=== PATIENT | male | born 1970 | race Caucasian/White ===

== ENCOUNTER 2018-08-14 15:09 | Outpatient (REF) | payer MEDICAID, SELFPAY ==
[2018-08-14 19:51] LABS: Abs Immature Grans 0.04 k/cumm (0.0-0.09); Absolute Basophil Count 0.02 k/cumm (0.0-0.2); Absolute Eosinophil Count 0.18 k/cumm (0.0-0.7); Absolute Lymphocyte Count 1.65 k/cumm (1.2-3.4); Absolute Monocyte Count 0.47 k/cumm (0.11-0.7); Absolute Neutrophil Count 4.41 k/cumm (1.2-6.7); Basophils % 0.3; Eosinophils % 2.7; HCT 47.1 % (40.0-50.0); HGB 15.6 g/dL (13.5-17.5); Immature Grans % 0.6; Lymphocytes % 24.4; Mean Corp. HGB Concentration 33.1 g/dL (32.0-36.0); Mean Corpuscular Volume 87.5 fL (80-95); Mean Platelet Volume 10.1 fL (8.0-11.0); Monocytes % 6.9; Neutrophils % 65.1; Platelet Count 230 x1000/uL (130-400); RBC 5.38 m/cumm (4.50-6.00); White Blood Cell Count 6.77 k/cumm (4.4-10.8)
[2018-08-14 20:11] LABS: ALT 39 U/L (12-78); AST 25 U/L (15-37); Alkaline Phosphatase 82 U/L (46-116); Anion Gap 10.6 mmol/L (3-11); BUN 11 mg/dL (7-18); Bilirubin, Total 1.1 mg/dL (0.2-1.0); CO2 26.4 mmol/L (21.0-32.0); CREATININE 0.98 mg/dL (0.70-1.30); Calcium 9.2 mg/dL (8.5-10.1); Chloride 105 mmol/L (98-107); Cholesterol 234 mg/dL (50-200); Glucose 83 mg/dL (70-100); HDL Cholesterol 40 mg/dL (40-60); LDL CHOLESTEROL 166 mg/dL (<100); Potassium 4.2 mmol/L (3.5-5.1); Sodium 142 mmol/L (136-145); Total Protein 7.2 g/dL (6.4-8.2); Triglyceride 158 mg/dL (30-150)
== END 2018-08-14 15:29 ==
LOC: NCHCN 15:09
PROVIDERS: PCP Family Medicine; Visit Provider Family Medicine
DX: R10.11 Right upper quadrant pain (principal); F33.2 Major depressive disorder, recurrent severe without psychotic features; E78.5 Hyperlipidemia, unspecified
CPT/HCPCS: 80053; 80061; 83721; 85025

== ENCOUNTER 2018-11-08 01:43 | Outpatient (CLI) | payer MEDICAID, SELFPAY ==
--- NOTE | 2018-11-08 08:09 | DI.US_ITS ---
SYMPTOM/DIAGNOSIS: RUQ ABD PAIN, R10.11 ABDOMEN ULTRASOUND: Routine examination was performed. There is limited visualization of the abdominal aorta and inferior vena cava. No definite abdominal aortic aneurysm is seen. The liver is enlarged measuring 20.1 cm. There is diffuse increased echogenicity of the liver. No hepatic mass is seen. There is a mobile stone seen within the gallbladder. No gallbladder wall thickening, sludge or pericholecystic fluid is seen. The common duct is within normal limits at .5 cm. There was a negative sonographic Manuel's sign. The pancreas is unremarkable. The spleen is mildly enlarged measuring 13.8 cm. The kidneys are unremarkable. No free fluid is seen in the upper abdomen. IMPRESSION: Hepatic steatosis. Hepatosplenomegaly. Cholelithiasis. No sonographic findings to suggest acute cholecystitis.
== END 2018-11-08 02:03 ==
PROVIDERS: PCP Family Medicine; Visit Provider Family Medicine
DX: R10.11 Right upper quadrant pain (principal); K76.0 Fatty (change of) liver, not elsewhere classified; R16.2 Hepatomegaly with splenomegaly, not elsewhere classified; K80.20 Calculus of gallbladder without cholecystitis without obstruction
CPT/HCPCS: 76700

== ENCOUNTER 2018-11-12 13:41 | Outpatient (REF) | payer MEDICAID, SELFPAY ==
[2018-11-12 19:37] LABS: ALT 45 U/L (12-78); AST 24 U/L (15-37); Alkaline Phosphatase 87 U/L (46-116); Anion Gap 11.1 mmol/L (3-11); BUN 12 mg/dL (7-18); CO2 26.9 mmol/L (21.0-32.0); Calcium 8.7 mg/dL (8.5-10.1); Chloride 104 mmol/L (98-107); Glucose 75 mg/dL (70-100); Lipase 184 U/L (73-393); Potassium 4.1 mmol/L (3.5-5.1); Sodium 142 mmol/L (136-145); Total Protein 7.1 g/dL (6.4-8.2)
[2018-11-12 19:41] LABS: Abs Immature Grans 0.04 k/cumm (0.0-0.09); Absolute Basophil Count 0.03 k/cumm (0.0-0.2); Absolute Eosinophil Count 0.17 k/cumm (0.0-0.7); Absolute Lymphocyte Count 1.54 k/cumm (1.2-3.4); Absolute Monocyte Count 0.38 k/cumm (0.11-0.7); Absolute Neutrophil Count 3.37 k/cumm (1.2-6.7); Basophils % 0.5; Eosinophils % 3.1; HGB 15.2 g/dL (13.5-17.5); Immature Grans % 0.7; Lymphocytes % 27.8; Mean Corpuscular Hemoglobin 28.9 pg (27.0-33.0); Mean Corpuscular Volume 87.5 fL (80-95); Mean Platelet Volume 10.7 fL (8.0-11.0); Monocytes % 6.9; Platelet Count 207 x1000/uL (130-400); RBC 5.26 m/cumm (4.50-6.00); RBC Distribution Width 14.9 % (11.8-14.1); White Blood Cell Count 5.53 k/cumm (4.4-10.8)
== END 2018-11-12 14:01 ==
LOC: NCHCN 13:41
PROVIDERS: PCP Family Medicine; Visit Provider Family Medicine
DX: R10.11 Right upper quadrant pain (principal)
CPT/HCPCS: 80053; 83690; 85025

== ENCOUNTER 2018-11-15 02:35 | Outpatient (CLI) | payer MEDICAID, SELFPAY ==
--- NOTE | 2018-11-15 13:00 | DI.NM_ITS ---
SYMPTOMS/DIAGNOSIS: RIGHT UPPER QUADRANT ABDOMINAL PAIN, RADIATING TO BACK X 1 YEAR WITH INCREASING INTENSITY, POSITIVE STONE BY ULTRASOUND, R10.11 HEPATOBILIARY SCAN: Hepatobiliary scan was performed with intravenous infusion of 5.0 mCi of technetium 99 labelled Mebrofenin. There is prompt homogeneous hepatic uptake and prompt uptake in the gallbladder, bile ducts and small intestine. CONCLUSION: Normal hepatobiliary scan. No evidence of cholecystitis.
== END 2018-11-15 02:55 ==
PROVIDERS: PCP Family Medicine; Visit Provider Family Medicine
DX: R10.11 Right upper quadrant pain (principal)
CPT/HCPCS: 78227

== ENCOUNTER 2019-12-17 11:08 | Outpatient (REF) | payer MEDICAID, SELFPAY ==
[2019-12-17 15:17] LABS: HCT 41.8 % (40.0-50.0); Mean Corp. HGB Concentration 33.5 g/dL (32.0-36.0); Mean Corpuscular Hemoglobin 29.5 pg (27.0-33.0); Mean Corpuscular Volume 88.2 fL (80-95); Mean Platelet Volume 10.4 fL (8.0-11.0); Platelet Count 203 x1000/uL (130-400); RBC 4.74 m/cumm (4.50-6.00); RBC Distribution Width 14.5 % (11.8-14.1); White Blood Cell Count 5.03 k/cumm (4.4-10.8)
[2019-12-17 15:55] LABS: ALT 41 U/L (16-63); AST 22 U/L (15-37); Albumin 3.9 g/dL (3.4-5.0); Alkaline Phosphatase 76 U/L (46-116); Anion Gap 7.5 mmol/L (3-11); BUN 18 mg/dL (7-18); Bilirubin, Total 0.8 mg/dL (0.2-1.0); CO2 28.5 mmol/L (21.0-32.0); CREATININE 1.05 mg/dL (0.70-1.30); Calcium 8.5 mg/dL (8.5-10.1); Chloride 105 mmol/L (98-107); Ferritin 173 ng/mL (26-388); Glucose 105 mg/dL (74-106); Potassium 4.2 mmol/L (3.5-5.1); Sodium 141 mmol/L (136-145); Total Protein 6.9 g/dL (6.4-8.2)
[2019-12-17 16:23] LABS: C-Reactive Protein 0.33 mg/dL (0.0-0.3)
[2019-12-18 09:53] LABS: Hepatitis B Surface Ag Negative (Negative)
[2019-12-18 10:54] LABS: Hepatitis C Ab w Rflx HCV PCR Negative (Negative)
== END 2019-12-17 11:28 ==
LOC: NCHCN 11:08
PROVIDERS: PCP Family Medicine; Visit Provider Family Medicine
DX: M79.671 Pain in right foot (principal); K76.0 Fatty (change of) liver, not elsewhere classified; Z11.59 Encounter for screening for other viral diseases
CPT/HCPCS: 80053; 85027; 86803; 87340; 82728; 86140

== ENCOUNTER 2020-01-29 17:36 | Emergency (ER) | payer MEDICAID, SELFPAY ==
[2020-01-29] VITALS (12 sets, daily range): BP systolic 110–145; BP diastolic 61–91; PULSE 57–66; RESP 8–18; TEMP 36.7; O2SAT 95–98
--- NOTE | 2020-01-29 18:04 | W.ED.GENAD ---
Discharge Plan Disposition Patient Disposition: HOME Condition: Good Discharge Details Chief Complaint: Abd Prob Clinical Impression: Nausea, Light-headedness, Elevated lipase Primary Care Provider: Shekhar Daigle ED Provider: Octavio Wells Home Meds and New Rx's Prescriptions: New ondansetron 4 mg tablet,disintegrating 4 mg PO Q8H PRNQty: 10 RF: 0 Continued paroxetine HCl [Paxil] 20 MG tablet 20 mg PO DAILY RF: 0 cetirizine [Zyrtec] 10 MG tablet,chewable 10 mg PO DAILY RF: 0 bupropion HCl 150 mg tablet sustained-release 12 hr 150 mg PO DAILY RF: 0 ibuprofen [Ibuprofen IB] 200 mg Tablet 400 mg PO Q6H PRNRF: 0 Discharge Instructions Additional Instructions: Everything looked fine here except for slightly elevated lipase. However CAT scan did not suggest pancreatitis. No evidence of gallbladder disease. Would recommend liquid/bland diet for the next day or 2 to see how you do. Ondansetron as needed for nausea. Contact primary care to touch base with him in the next day or 2. Return to ED if you develop fever, vomiting, abdominal pain, chest pain, shortness of breath, neurologic changes, fainting. 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 He states he believes he has had trouble with his gallbladder in the past but has not had a formal diagnosis. He arrives with temperature 36.7, pulse 62, pressure 135/85. He feels better than he did at home. He does have mild diffuse tenderness of the abdomen without focal quality. There is no rebound or guarding present. Different diagnosis includes biliary colic, ileus, partial bowel obstruction and would consider diverticulitis. Patient IV access established, fluids initiated, referred for laboratory testing and CT images. Initial laboratories show reassuring CBC, LFTs that are reassuring but note of lipase 586. Patient continues to prep for CT scan. We will sign out to Dr. Wells pending review of his imaging and reevaluation. Lab Data Lab results reviewed: Yes I reviewed the patient's lab results. Labs: Laboratory Results - last 24 hr 01/29/20 01/29/20 18:17 18:17 WBC 5.48 RBC 4.80 Hgb 13.9 Hct 42.0 MCV 87.5 MCH 29.0 MCHC 33.1 RDW 14.1 Plt Count 216 MPV 10.1 Immature Gran % 0.2 Neutrophils % 60.6 Lymphocytes % 27.6 Monocytes % 7.8 Eosinophils % 3.6 Basophils % 0.2 Absolute Neutrophils 3.32 Absolute Lymphocytes 1.51 Absolute Monocytes 0.43 Absolute Eosinophils 0.20 Absolute Basophils 0.01 Sodium 139 Potassium 3.9 Chloride 103 Carbon Dioxide 26.6 Anion Gap 9.4 BUN 10 Creatinine 1.05 Estimated GFR/1.73 m2 >= 60.00 Glucose 143 H Calcium 9.0 Magnesium 2.1 Total Bilirubin 0.6 AST 27 ALT 46 Alkaline Phosphatase 85 Troponin I < 0.05 Total Protein 6.9 Albumin 3.6 Lipase 586 H ECG Data Attestation: I personally reviewed and interpreted this ECG (s) as follows: Interpretation: Normal sinus rhythm with a rate of 62, QRS is narrow, no ST segment elevation present. <Octavio Wells MD - Last Filed: 01/29/20 21:30> Patient signed out to me pending CT of the abdomen pelvis. He had presented with nausea, bloating, lightheadedness. Please see Dr. Catherine's original note for details and plan. Laboratory studies unremarkable except for lipase being slightly elevated. Received fluids but was not feeling nauseated initially. Denies having any type of chest pain or pressure. He has no spinning sensation just a lightheaded feeling with nausea. He has no abdominal pain. He has not had vomiting. His CT scan is unremarkable. He has a fatty liver otherwise no acute changes. Will give another liter of LR as well as some Zofran IV and reevaluate. 21:25 - Patient is feeling better after the second liter of fluid and some Zofran. Now is just exhausted because he is not slept much today and at manufacturing shift supervisor last night. We will keep him on a full liquid/bland diet for a day or 2 and have him touch base with his primary care. Home with some Zofran to use as needed. Return to ED for fever, vomiting, abdominal pain, chest pain, shortness of breath, fainting, other concerns or problems. Lab Data Lab results reviewed: Yes I reviewed the patient's lab results. HPI <Estrada Catherine MD - Last Filed: 01/29/20 19:23> General Mode of arrival: ambulatory. Date/Time Provider Initiated Documentation: 01/29/20 17:44. Limitations to Documentation: no limitations. Information obtained by: patient. History of Present Illness 49 year old M presents to the emergency department with the chief complaint of Abdominal pain and bloating with lightheadedness, described as moderate and similar to prior episodes, Quality is described as dull, and is localized to the abdomen. Patient started experiencing this hour(s) and it has been other (Improving). No relieving factors improve symptom(s), No exacerbating factors reported . Patient notes loss of appetite; denies fever/chills and nausea/vomiting. Patient did receive the following treatments prior to arrival, none Related Data Home Medications Medication Instructions Recorded Confirmed cetirizine [Zyrtec] 10 mg PO DAILY tab-cap 01/13/13 01/29/20 paroxetine HCl [Paxil] 20 mg PO DAILY tab-cap 01/13/13 01/29/20 bupropion HCl 150 mg PO DAILY 01/29/20 01/29/20 ibuprofen [Ibuprofen IB] 400 mg PO Q6H PRN 01/29/20 01/29/20 ondansetron 4 mg PO Q8H PRN #10 tab 01/29/20 Previous Rx's Medication Instructions Recorded ondansetron 4 mg PO Q8H PRN #10 tab 01/29/20 Allergies Allergy/AdvReac Type Severity Reaction Status Date / Time hydrocodone bitartrate Allergy Intermediate SEVERE Unverified 01/29/20 17:49 [From Vicodin] ITCHING oxycodone HCl [From Percocet] Allergy Intermediate SEVERE Unverified 01/29/20 17:49 ITCHING General Stated Complaint: Abd Prob CASSANDRA: 3 Review of Systems <Estrada Catherine MD - Last Filed: 01/29/20 19:23> Narrative: 7 systems reviewed and otherwise negative PFSH <Estrada Catherine MD - Last Filed: 01/29/20 19:23> Social History Smoking/Tobacco Use Status: Never Drug use: Occasionally Substance use type: marijuana Do you feel safe at home: Yes Do you feel safe in your relationship?: Yes Exam <Estrada Catherine MD - Last Filed: 01/29/20 19:23> Narrative Exam Narrative: GEN: awake, alert, oriented 3. Pleasant, well groomed, interactive. HEAD: Normocephalic, atraumatic ENT: Mucous membranes moist, oropharynx unremarkable, External ear exam unremarkable EYES: PERRL, EOMI NECK: Full ROM, no TEGAN, no menigismus CHEST/RESP: Nontender, clear to auscultation bilateral, no wheeze/rhonchi/rales CARDIOVASCULAR: RRR, no murmur, rub rosamaria. 2+ Rad pulse bilateral ABDOMEN: Soft, mild tenderness without rebound or guarding, nonfocal, no mass. +Bowel sounds EXT: Full ROM, no edema, no rash Neuro: Grossly normal neurologic exam, conversant, interactive. Psych: Speech fluent, thoughts congruent, affect normal Course <Estrada Catherine MD - Last Filed: 01/29/20 19:23> Vital Signs Vital signs: Vital Signs Temperature 36.7 C 01/29/20 17:43 Pulse 62 01/29/20 17:43 Respiratory Rate 18 01/29/20 17:43 Blood Pressure 135/84 01/29/20 17:43 Pulse Oximetry 98 01/29/20 17:43 Temperature 36.7 C 01/29/20 17:43 Temperature Source Temporal Artery Scan 01/29/20 17:43 Pulse 62 01/29/20 17:43 Respiratory Rate 18 01/29/20 17:43 Respiratory Effort Non-Labored 01/29/20 17:48 Blood Pressure 135/84 01/29/20 17:43 Blood Pressure Position Supine 01/29/20 17:43 Pulse Oximetry 98 01/29/20 17:43 Oxygen Delivery Method Room Air 01/29/20 17:43 Oxygen Flow Rate 0 01/29/20 17:43 Pain Level 5 01/29/20 17:43 Sign Out <Estrada Catherine MD - Last Filed: 01/29/20 19:23> Sign Out Data: Sign Out Comment: Followup CT images Last updated by Estrada Catherine MD at 01/29/20 19:45
--- NOTE | 2020-01-29 18:15 | DI.CT_ITS ---
EXAM: CT ABDOMEN PELVIS W CLINICAL HISTORY: Epigastric pain with bloating. TECHNIQUE: Imaging Protocol: Axial computed tomography images with coronal and sagittal reformatted images were created and reviewed CONTRAST MATERIAL: Intravenous: Omnipaque 350 Contrast volume:100 cc Oral: yes / COMPARISON: US US ABDOMEN from 11/08/2018 FINDINGS: ABDOMEN: Lung Bases: Normal where visualized. Liver: Moderate fatty infiltration. No measurable mass. Gallbladder and biliary tract: No radiodense calculus or dilation. Pancreas: Normal density, no abnormal calcifications or inflammatory process. Spleen: Normal. Kidneys: Normal size, contour and axis. No radiodense stones or obstructive uropathy. No masses seen. Adrenal glands: No masses seen. Abdominal Aorta: Abdominal portion non-dilated. PELVIS: Bladder: Symmetric distention, no gross wall thickening. Bowel: No obstruction or bowel wall thickening. No evidence of appendicitis. No diverticulosis is vi sible. Peritoneal cavity: No ascites, collection or mesenteric inflammatory response. Bones: L5 spondylolysis and mild L5-S1 spondylolisthesis. Degenerative disc changes are seen through out. Reproductive organs: Within normal limits. Lymph nodes: Unremarkable. Impression: Hepatic steatosis, otherwise unremarkable CT scan of the abdomen and pelvis. RADIATION DOSE DELIVERED: 1,603.74mGy.cm Total DLP DATA REPOSITORY: All CT scans at this facility are submitted to the National Radiology Data Registry (NRDR) Dose Index Registry (DIR) with the [employer] (ACR). RADIATION OPTIMIZATION: All CT scans at this facility use at least one of these dose optimization te chniques: automated exposure control; mA and/or kV adjustment per patient size (includes targeted exa ms where dose is matched to clinical indication); or iterative reconstruction.
[2020-01-29] MEDS: Lactated Ringers 1,000 ML 125 ML IV (18:20)
[2020-01-29 18:26] LABS: Abs Immature Grans 0.01 k/cumm (0.0-0.09); Absolute Basophil Count 0.01 k/cumm (0.0-0.2); Absolute Lymphocyte Count 1.51 k/cumm (1.2-3.4); Absolute Monocyte Count 0.43 k/cumm (0.11-0.7); Absolute Neutrophil Count 3.32 k/cumm (1.2-6.7); Basophils % 0.2; Eosinophils % 3.6; HGB 13.9 g/dL (13.5-17.5); Immature Grans % 0.2 %; Lymphocytes % 27.6; Mean Corp. HGB Concentration 33.1 g/dL (32.0-36.0); Mean Corpuscular Volume 87.5 fL (80-95); Mean Platelet Volume 10.1 fL (8.0-11.0); Monocytes % 7.8; Neutrophils % 60.6; Platelet Count 216 x1000/uL (130-400); RBC Distribution Width 14.1 % (11.8-14.1); White Blood Cell Count 5.48 k/cumm (4.4-10.8)
[2020-01-29 18:38] LABS: ALT 46 U/L (16-63); AST 27 U/L (15-37); Albumin 3.6 g/dL (3.4-5.0); Alkaline Phosphatase 85 U/L (46-116); Anion Gap 9.4 mmol/L (3-11); BUN 10 mg/dL (7-18); Bilirubin, Total 0.6 mg/dL (0.2-1.0); CO2 26.6 mmol/L (21.0-32.0); CREATININE 1.05 mg/dL (0.70-1.30); Chloride 103 mmol/L (98-107); Glucose 143 mg/dL (74-106); Lipase 586 U/L (73-393); Magnesium 2.1 mg/dL (1.8-2.4); Potassium 3.9 mmol/L (3.5-5.1); Sodium 139 mmol/L (136-145); Total Protein 6.9 g/dL (6.4-8.2); Troponin I < 0.05 ng/mL (<0.06)
[2020-01-29] MEDS: Omnipaque 350 MG/ML 100 ML BTL IV (20:02)
[2020-01-29] MEDS: Normal Saline - Diluent 50 ML VIAL IV (20:03)
--- NOTE | 2020-01-29 20:11 | DI.VRAD_ITS ---
PROCEDURE INFORMATION: Exam: CT Abdomen And Pelvis With Contrast Exam date and time: 01/29/2020 19:47 Age: 49 years old Clinical indication: Abdominal tenderness and bloating and other: Epigastric pain with bloating TECHNIQUE: Imaging protocol: Computed tomography of the abdomen and pelvis with intravenous contrast. Radiation optimization: All CT scans at this facility use at least one of these dose optimization techniques: automated exposure control; mA and/or kV adjustment per patient size (includes targeted exams where dose is matched to clinical indication); or iterative reconstruction. Contrast material: OMNIPAQUE 350; Contrast volume: 100 ml; Contrast route: INTRAVENOUS (IV); Other contrast: Oral, 50 ml omnipaque , 1000 ml; COMPARISON: MO US ABDOMEN 11/08/2018 09:39 FINDINGS: Liver: Fatty liver with no mass lesions. Gallbladder and bile ducts: Normal morphology of the gallbladder. No pericholecystic edema. No significant biliary dilation or radiopaque stones in the biliary tree. Pancreas: No ductal dilation. No masses. Spleen: The spleen is mildly prominent in size with no focal lesions. Adrenals: No mass. Kidneys and ureters: No hydronephrosis. No renal masses. Stomach and bowel: No obstruction. No mucosal thickening. Appendix: No evidence of appendicitis. Intraperitoneal space: No free air. No significant fluid collection. Vasculature: No abdominal aortic aneurysm. Lymph nodes: No significantly enlarged lymph nodes. Bladder: Unremarkable as visualized. Reproductive: Unremarkable as visualized. Bones/joints: Grade one anterolisthesis of L5 over S1 in the setting of pars defects. Multilevel disc space narrowing. Multilevel spondylosis in the lumbar spine. Multilevel central canal and neural foraminal stenosis. No acute fracture or subluxation. Soft tissues: No suspicious lesions. IMPRESSION: 1. No acute findings. No source of pain is identified. 2. Incidental findings as described. Dictated and Authenticated by: Heidy Nesbitt MD. Ordering:SLOANE Dorado MD
[2020-01-29] MEDS: Ondansetron 4 MG/2 ML VIAL IVP (20:30)
[2020-01-29] MEDS: Lactated Ringers 1,000 ML 1000 ML IV (20:39)
== END 2020-01-29 21:50 | disposition home or self-care (01) ==
PROVIDERS: Emergency Medicine; Emergency Provider Emergency Medicine; PCP Family Medicine
DX: R11.0 Nausea (principal); R74.8 Abnormal levels of other serum enzymes; R42 Dizziness and giddiness
CPT/HCPCS: 36415; 80053; 83690; 93005; 96361; 96374; 99285; 74177; 83735; 84484; 85025; 93010; J2405; J3490

== ENCOUNTER 2020-07-02 21:41 | Outpatient (REF) | payer MEDICAID, SELFPAY ==
[2020-07-06 07:37] LABS: Patient Race White; SARS-CoV-2 RNA Undetected (Undetected); SARS-CoV-2 Specimen Source Nasal
== END 2020-07-02 22:01 ==
LOC: NCHCN 21:41
PROVIDERS: PCP Family Medicine; Visit Provider Nurse Practitioner Family
DX: R07.89 Other chest pain (principal); Z11.59 Encounter for screening for other viral diseases
CPT/HCPCS: U0003

== ENCOUNTER 2020-07-07 14:45 | Outpatient (REF) | payer MEDICAID, SELFPAY ==
[2020-07-11 09:56] LABS: SARS-CoV-2 RNA Undetected (Undetected); SARS-CoV-2 Specimen Source Nasal
== END 2020-07-07 15:05 ==
LOC: NCHCN 14:45
PROVIDERS: PCP Family Medicine; Visit Provider Physician Assistant
DX: R05 Cough (principal)
CPT/HCPCS: U0003

== ENCOUNTER 2021-01-27 13:13 | Outpatient (REF) | payer MEDICAID, SELFPAY ==
[2021-01-27 13:12] LABS: HCT 41.4 % (40.0-50.0); HGB 13.9 g/dL (13.5-17.5); MCH 29.1 pg (27.0-33.0); MCHC 33.6 % (32.0-36.0); MCV 86.8 fL (80-95); MPV 9.7 fL (8.0-11.0); Platelet Count 189 10^3/uL (130-400); RBC 4.77 10^6/uL (4.36-5.78); RDW 13.4 % (11.8-14.1); RDW-SD 42.5 fL
[2021-01-27 13:18] LABS: ALT 41 U/L (16-63); AST 19 U/L (15-37); Albumin 3.6 g/dL (3.4-5.0); Alkaline Phosphatase 79 U/L (46-116); Anion Gap 8.4 mmol/L (3-11); BUN 14 mg/dL (7-18); Bilirubin, Total 0.7 mg/dL (0.2-1.0); CO2 27.6 mmol/L (21.0-32.0); CREATININE 0.9 mg/dL (0.70-1.30); Calcium 8.3 mg/dL (8.5-10.1); Chloride 107 mmol/L (98-107); Glucose 118 mg/dL (74-106); Potassium 4.2 mmol/L (3.5-5.1); Sodium 143 mmol/L (136-145); Total Protein 6.6 g/dL (6.4-8.2)
== END 2021-01-27 13:14 | disposition home or self-care (01) ==
LOC: LBN 13:13
PROVIDERS: PCP Family Medicine; Visit Provider Family Medicine
DX: K76.0 Fatty (change of) liver, not elsewhere classified (principal)
CPT/HCPCS: 80053; 85027

== ENCOUNTER → 2022-02-10 00:49 | Outpatient (CLI) | payer MEDICAID, SELFPAY ==
--- NOTE | 2022-02-10 | DI.CT_ITS ---
Exam(s) CT ABDOMEN PELVIS W EXAM: CT ABDOMEN PELVIS W CLINICAL HISTORY: RLQ MASS, R19.03,BULGE ON COLONOSCOPY. TECHNIQUE: Imaging Protocol: Axial computed tomography images with coronal and sagittal reformatted images were created and reviewed CONTRAST MATERIAL: Intravenous: Omnipaque 91cc Oral: Yes. Oral contrast was administered for bowel opacification. COMPARISON: CT CT ABDOMEN PELVIS W from 01/29/2020 FINDINGS: VISUALIZED LUNG BASES: No nodules nor pleural effusions evident. ABDOMEN: There is no ascites. LIVER: Hepatic steatosis again noted. There are no discrete focal hepatic lesions. GALLBLADDER/BILIARY: No obvious gallbladder pathology. CBD is not dilated. PANCREAS: No evidence of pancreatic mass nor dilatation of the pancreatic duct. SPLEEN: Spleen size upper normal. No intrasplenic lesions. Splenic and portal veins are patent. ADRENALS: There are no significant adrenal masses. KIDNEYS:No cysts evident. No solid renal masses. No calculi nor hydronephrosis.. ABDOMINAL AORTA: Abdominal aorta is not enlarged. LYMPH NODES:There is no retroperitoneal nor paraaortic adenopathy. ABDOMINAL WALL: No evidence of significant anterior abdominal wall nor inguinal hernia. GI: There is no evidence of bowel obstruction, free air, nor abscess. PELVIS: GI: No evidence of appendicitis.No evidence of sigmoid diverticulitis. LYMPH NODES: There is no intrapelvic nor inguinal adenopathy. REPRODUCTIVE: Prostate gland is not enlarged. Seminal vesicles unremarkable. URINARY BLADDER: Slightly uniformly thickened walled although this may be exaggerated by under disten dina. Bladder appeared unremarkable on CT scan of January 2020. OSSEOUS: No significant osseous lesions. Bilateral pars defects at L5 with anterolisthesis L5 upon S1 again noted. Bilateral foraminal stenos is at L5-S1. IMPRESSION: 1. Hepatic steatosis again noted. No discrete focal hepatic lesions. 2. Uniform thickening of the urinary bladder wall although this may be related to under distension. I note that the urinary bladder. Unremarkable on prior CT scan of January 2020. 3. Bilateral L5 pars defects with anterolisthesis L5 upon S1 again noted. 4. RADIATION DOSE DELIVERED: 1,721.22mGy.cm Total DLP DATA REPOSITORY: All CT scans at this facility are submitted to the National Radiology Data Registry (NRDR) Dose Index Registry (DIR) with the [employer] (ACR). RADIATION OPTIMIZATION: All CT scans at this facility use at least one of these dose optimization te chniques: automated exposure control; mA and/or kV adjustment per patient size (includes targeted exa ms where dose is matched to clinical indication); or iterative reconstruction.
[2022-02-10] MEDS: Barium Sulfate 2% W/V-Berry Smoothie 450 ML BTL PO (09:05)
[2022-02-10] MEDS: Omnipaque 350 MG/ML 100 ML BTL IJ (10:08)
== END ==
PROVIDERS: PCP Family Medicine; Visit Provider Family Medicine
DX: K76.0 Fatty (change of) liver, not elsewhere classified (principal); M43.17 Spondylolisthesis, lumbosacral region; R19.03 Right lower quadrant abdominal swelling, mass and lump
CPT/HCPCS: 74177; J3490

== ENCOUNTER 2022-02-22 17:23 | Outpatient (REF) | payer MEDICAID, SELFPAY ==
[2022-02-22 16:16] LABS: HCT 47.5 % (40.0-50.0); HGB 16.2 g/dL (13.5-17.5); MCH 30.6 pg (27.0-33.0); MCHC 34.1 % (32.0-36.0); MCV 90 fL (80-95); MPV 10.7 fL (8.0-11.0); Platelet Count 181 10^3/uL (130-400); RDW 13.4 % (11.8-14.1); RDW-SD 43.6 fL; WBC 5.95 10^3/uL (4.4-10.8)
[2022-02-22 16:35] LABS: ALT 89 U/L (16-63); AST 64 U/L (15-37); Alkaline Phosphatase 75 U/L (46-116); Anion Gap 12.8 mmol/L (3-11); BUN 12 mg/dL (7-18); Bilirubin, Total 1.2 mg/dL (0.2-1.0); CO2 26.2 mmol/L (21.0-32.0); CREATININE 0.9 mg/dL (0.70-1.30); Calcium 8.9 mg/dL (8.5-10.1); Calculated LDL 160 mg/dL (<100); Chloride 105 mmol/L (98-107); Cholesterol 232 mg/dL (<200); Glucose 102 mg/dL (74-106); HDL Cholesterol 39 mg/dL (40-60); Potassium 4.2 mmol/L (3.5-5.1); Sodium 144 mmol/L (136-145); Total Protein 7.2 g/dL (6.4-8.2); Triglyceride 166 mg/dL (<150)
[2022-02-22 17:05] LABS: Hemoglobin A1C 5.6 % (<5.7)
--- OUTSIDE RECORDS SUMMARY | 2022-02-22 17:26 | XMS_ITS | Encounter Summary ---
:1970 Author Organization [place] [address] Care Team Providers Name Role Phone Charbel Grant APRN Primary Care Provider Reason for Visit Reason Comments Skin Check Encounter Details Date Type Department Care Team Description 11/28/2011 Office Visit Dermatology Bharat Reynolds, Kelly[place] (Primary Dx) [address] [facility] [address] [place], [place] [address] DERMATOLOGY [phone] [place], [place] [address] (Wo rk) Social History Tobacco Use Types Packs/Day Years Used Date Former Smoker Sex Assigned at Date Recorded Not on file documented as of this encounter Progress Notes Bharat Reynolds MD - 11/28/2011 11:08 AM EDT Problem: Mole check. Isiah is a 41-year-old gentleman who is referred today by Alexis Garcia, regarding multiple nevi on the patient's chest and back. The patient gets a fair amount of sun exposure and has had a fair number of sunburns in the past. He is not aware of any personal or family history of skin cancer or melanoma. None of his nevi has been symptomatic in terms of being pruritic or sore; none has bled or scabbed. Physical examination reveals a pleasant, 41-year-old gentleman who is alert and oriented times three without any other cutaneous complaints. He has blue eyes, fair reddish-brown hair, and freckled skin. He does have a little bit of a abernathy's putnam from the recent good weather we have been having, and his exposed forearms, upper chest, back, and neck are slightly sunburned. Examination of the head and the neck, the chest, the back, and the hands, arms, forearms, thighs, and calves reveals numerous junctional melanocytic nevi and ephelides, most prominent on the upper shoulders, upper chest, and back. While these do show some mild atypicality of their margins, they do have overall good symmetry and appear to be his signature nevi. They are not outstanding as being significantly different from the other nevi by the ABCD criteria. He has a single, 1-cm, pedunculated compound versus intradermal nevus of the left upper inner thigh, which he has had since macadam raker and is totally asymptomatic he states. It is flesh tones. Otherwise, careful examination of the head and the neck, the chest, the back, hands, arms, forearms, thighs, and calves is benign. Assessment and Plan: Benign melanocytic nevi, benign ephelides. a. Patient reassured about benign examination. b. Stressed the importance of sun avoidance precautions and using SPF 30 sunscreen, which he states that he usually does do. c. Given benign baseline exam, I would recommend that he follow up on a p.r.n. basis here. I will be happy to see him back at either his request or that of Charbel Grant. Copy: Alexis Garcia documented in this encounter Plan of Treatment Not on filedocumented as of this encounter Visit Diagnoses Diagnosis Nevus - Primary Benign neoplasm of skin, site unspecifie d documented in this encounter Care Teams Nutritionists Relationship Specialty Start Date End Date Charbel Grant APRN PCP - General 11/28/11 09/29/21 documented as of this encounter
--- OUTSIDE RECORDS SUMMARY | 2022-02-22 17:26 | XMS_ITS | Encounter Summary ---
:1970 Author Organization [facility] [place] [address] Care Team Providers Name Role Phone Shekhar Daigle MD Primary Care Provider Reason for Referral Surgical (Routine) - Authorized Specialty Diagnoses / Procedures Referred By Contact Refer red To Contact Gastroenterology Diagnoses Colon cancer screening screening Shekhar Daigle MD [facility] Endoscopy 4t Procedures colonoscopy [address] [facility] [phone] [place] [address] Referral ID Status Reason Start Date Expiration Date Visits V isits Requested Authorized [id number] Authorized Test Only 09/26/2021 09/26/2022 1 1 Encounter Details Date Type Department Care Team Description 09/30/2021 Transcribe Orders Administration Shekhar Daigle MD Colon cancer [facility] [address] [facility] [id number] Social History Tobacco Use Types Packs/Day Years Used Date Former Smoker Sex Assigned at Date Recorded Not on file documented as of this encounter Plan of Treatment Scheduled Referrals Name Type Priority Associated Order Schedule Diagnoses REFERRAL TO Outpatient Referral Routine Colon cancer Ordered: COLONOSCOPY PROCEDURE screening 2021 documented as of this encounter Visit Diagnoses Diagnosis Colon cancer screening Special screening for malignant neoplasm s, colon documented in this encounter Care Teams Biologist Aide Relationship Specialty Start Date End Date Shekhar Daigle MD PCP - General Family Medicine 09/30/21 [address] [place] [address] documented as of this encounter
--- OUTSIDE RECORDS SUMMARY | 2022-02-22 17:26 | XMS_ITS | Encounter Summary ---
:1970 Author Organization [facility] [place] [address] Care Team Providers Name Role Phone Shekhar Daigle MD Primary Care Provider Encounter Details Date Type Department Care Team Description 01/23/2022 Hospital Encounter Gastroenterology at [facility] [place] [address] [place] [address] GASTROENEROLOGY [place] [address] Social History Tobacco Use Types Packs/Day Years Used Date Former Smoker Smokeless Tobacco: Never Used Alcohol Use Standard Drinks/Week Comments Yes 12 (1 standard drink = 0.6 oz pure alcoh ol) Sex Assigned at Date Recorded Not on file documented as of this encounter Last Filed Vital Signs Vital Sign Reading Time Taken Comments Blood Pressure 118/60 01/23/2022 3:40 PM EDT Pulse 60 01/23/2022 1:30 PM EDT Temperature 35.8 ??C (96.4 ??F) 01/23/2022 1:30 PM EDT Respiratory Rate 16 01/23/2022 3:40 PM EDT Oxygen Saturation 95% 01/23/2022 3:50 PM EDT Inhaled Oxygen Concentration - - Weight 127 kg (280 lb) 01/23/2022 1:30 PM EDT Height 172.7 cm (5' 8) 01/23/2022 1:30 PM EDT Body Mass Index 42.57 01/23/2022 1:30 PM EDT documented in this encounter Discharge Instructions Discharge Pratik Gomez RN - 01/23/2022 3:27 PM EDT Colonoscopy: What to Expect at Home Your Recovery Your doctor will talk to you about when you will need your next colonoscopy. Your doctor can help you decide how often you need to be checked. This will depend on the results of your test and your riskfor colorectal cancer. After the test, you may be bloated or have gas pains. You may need to pass gas. If a biopsy was doneor a polyp was removed, you may have streaks of blood in your stool (feces) for a few days. Problemssuch as heavy rectal bleeding may not occur until several weeks after the test. This isn't common. But it can happen after polyps are removed. This care sheet gives you a general idea about how long it will take for you to recover. But each person recovers at a different pace. Follow the steps below to get better as quickly as possible. How can you care for yourself at home? Activity Rest when you feel tired. You can do your normal activities when it feels okay to do so. Diet Follow your doctor's directions for eating. Unless your doctor has told you not to, drink plenty of fluids. This helps to replace the fluids that were lost during the colon prep. Do not drink alcohol. Medicines Your doctor will tell you if and when you can restart your medicines. He or she will also give you instructions about taking any new medicines. If you take blood thinners, such as warfarin (Coumadin), clopidogrel (Plavix), or aspirin, be sure to talk to your doctor. He or she will tell you if and when to start taking those medicines again. Make sure that you understand exactly what your doctor wants you to do. If polyps were removed or a biopsy was done during the test, your doctor may tell you not to take aspirin or other anti-inflammatory medicines for a few days. These include ibuprofen (Advil, Motrin) and naproxen (Aleve). Other instructions For your safety, do not drive or operate machinery until the medicine wears off and you can think clearly. Your doctor may tell you not to drive or operate machinery until the day after your test. Do not sign legal documents or make major decisions until the medicine wears off and you can think clearly. The anesthesia can make it hard for you to fully understand what you are agreeing to. Additional Information for Sedation Patients For patients who received sedation: You may have received medications before and/or during your procedure which effects your judgement and reaction time. Do not drive, operate machinery, drink alcoholic beverages or make important decisions for 24 hours. Be careful on stairs as you may be unsteady on your feet. You may eat a regular diet as tolerated. Do not smoke if you are alone. IV site: Slight redness or tenderness is normal, you can use a warm compress if you would like. If tenderness and/or redness increase or if foul drainage occurs, please contact your Doctor. Please call [phone] before 8pm Mon-Fri with problems, questions or concerns. If you call after 8pm or on weekends, call the Hospital at [phone] and ask to speak to the Equipment Maintenance Superintendent front desk lead and the air table operator will contact that person for you. When should you call for help? Call [phone] anytime you think you may need emergency care. For example, call if: You passed out (lost consciousness). You pass maroon or bloody stools. You have trouble breathing. Call your doctor now or seek immediate medical care if: You have pain that does not get better after you take pain medicine. You are sick to your stomach or cannot drink fluids. You have new or worse belly pain. You have blood in your stools. You have a fever. You cannot pass stools or gas. Watch closely for changes in your health, and be sure to contact your doctor if you have any problems. Where can you learn more? [facility] View your After Visit Summary and more online at [email or web address] If you would like to provide feedback about your hospital experience, please call the Office of Patient and Family Relations at . If you have received this After Visit Summary in error, please immediately return it in person to the department, or notify the [facility] Privacy Office by calling toll free at between the hours of 8AM and 5PM to arrange for our retrieval of the documents at no cost to you. Content Version: 12.2 ?? 8545-1085 [employer]. Care instructions adapted under license by [facility]. If you have questions about a medical condition or this instruction, always ask your healthcare professional. [employer] disclaims any warranty or liability for your use of this information. Colonoscopy: What to Expect at Home Your Recovery Your doctor will talk to you about when you will need your next colonoscopy. Your doctor can help you decide how often you need to be checked. This will depend on the results of your test and your riskfor colorectal cancer. After the test, you may be bloated or have gas pains. You may need to pass gas. If a biopsy was doneor a polyp was removed, you may have streaks of blood in your stool (feces) for a few days. Problemssuch as heavy rectal bleeding may not occur until several weeks after the test. This isn't common. But it can happen after polyps are removed. This care sheet gives you a general idea about how long it will take for you to recover. But each person recovers at a different pace. Follow the steps below to get better as quickly as possible. How can you care for yourself at home? Activity Rest when you feel tired. You can do your normal activities when it feels okay to do so. Diet Follow your doctor's directions for eating. Unless your doctor has told you not to, drink plenty of fluids. This helps to replace the fluids that were lost during the colon prep. Do not drink alcohol. Medicines Your doctor will tell you if and when you can restart your medicines. He or she will also give you instructions about taking any new medicines. If you take blood thinners, such as warfarin (Coumadin), clopidogrel (Plavix), or aspirin, be sure to talk to your doctor. He or she will tell you if and when to start taking those medicines again. Make sure that you understand exactly what your doctor wants you to do. If polyps were removed or a biopsy was done during the test, your doctor may tell you not to take aspirin or other anti-inflammatory medicines for a few days. These include ibuprofen (Advil, Motrin) and naproxen (Aleve). Other instructions For your safety, do not drive or operate machinery until the medicine wears off and you can think clearly. Your doctor may tell you not to drive or operate machinery until the day after your test. Do not sign legal documents or make major decisions until the medicine wears off and you can think clearly. The anesthesia can make it hard for you to fully understand what you are agreeing to. Additional Information for Sedation Patients For patients who received sedation: You may have received medications before and/or during your procedure which effects your judgement and reaction time. Do not drive, operate machinery, drink alcoholic beverages or make important decisions for 24 hours. Be careful on stairs as you may be unsteady on your feet. You may eat a regular diet as tolerated. Do not smoke if you are alone. IV site: Slight redness or tenderness is normal, you can use a warm compress if you would like. If tenderness and/or redness increase or if foul drainage occurs, please contact your Doctor. Please call [phone] before 8pm Mon-Fri with problems, questions or concerns. If you call after 8pm or on weekends, call the Hospital at [phone] and ask to speak to the Equipment Maintenance Superintendent front desk lead and the air table operator will contact that person for you. When should you call for help? Call [phone] anytime you think you may need emergency care. For example, call if: You passed out (lost consciousness). You pass maroon or bloody stools. You have trouble breathing. Call your doctor now or seek immediate medical care if: You have pain that does not get better after you take pain medicine. You are sick to your stomach or cannot drink fluids. You have new or worse belly pain. You have blood in your stools. You have a fever. You cannot pass stools or gas. Watch closely for changes in your health, and be sure to contact your doctor if you have any problems. Where can you learn more? [facility] View your After Visit Summary and more online at [email or web address] If you would like to provide feedback about your hospital experience, please call the Office of Patient and Family Relations at . If you have received this After Visit Summary in error, please immediately return it in person to the department, or notify the [facility] Privacy Office by calling toll free at between the hours of 8AM and 5PM to arrange for our retrieval of the documents at no cost to you. Content Version: 12.2 ?? 2824-3036 [employer]. Care instructions adapted under license by [facility]. If you have questions about a medical condition or this instruction, always ask your healthcare professional. [employer] disclaims any warranty or liability for your use of this information. documented in this encounter Medications at Time of Discharge Medication Sig Dispensed Refills Start Date End Date ARIPiprazole (Abilify) 2 0 12/12/2021 mg Tablet cetirizine (ZyrTEC) 10 TAKE ONE TABLET BY 0 01/04 mg Tablet MOUTH EVERY DAY FOR ALLERGY dextroamphetamine-amphet 0 01/20/2022 amine (Adderall) 10 mg Tablet dextroamphetamine-amphet 0 01/20/2022 amine (Adderall) 5 mg Tablet Latuda 40 mg Tablet 0 01/11/2022 PARoxetine (Paxil) 40 mg TAKE ONE TABLET BY 0 Tablet MOUTH EVERY DAY - SCHEDULE APPOINTMENT FOR REFILLS documented as of this encounter H&P Notes Nataliya Gusman MD - 01/23/2022 2:14 PM EDT Patient Name: Isiah Magaña Jr. Patient Age: 51 y.o. Birthdate: 1970 Admit date: 01/23/2022 Attending Physician: Nataliya Gusman MD Gastroenterology and Hepatology Pre-Procedure History and Physical Exam Procedure: Colonoscopy: Indication: screening, average risk Patient Active Problem List Diagnosis Code ??? Nevus D22.9 EXAM: HEENT: Airway examined, oropharynx clear Mallampati Score: per anesthesia LUNGS: Clear to auscultation HEART: Regular rate and rhythm, normal S1, S2 ABDOMEN: Normal bowel sounds, soft, non tender, non distended A/P Proceed with the planned endoscopic procedure. ASA 3 - Patient with moderate systemic disease with functional limitations Sedation Plan: deep Risks and benefits of the procedure explained to the patient in detail. Consent signed. documented in this encounter Plan of Treatment Not on filedocumented as of this encounter Procedures Procedure Name Priority Date/Time Associated Comments Diagnosis SPECIMEN TO PATHOLOGY Routine 01/23/2022 3:09 PM Results for this EDT procedure are i n the results section. SPECIMEN TO PATHOLOGY Routine 01/23/2022 3:09 PM Results for this EDT procedure are i n the results section. SURGICAL PATHOLOGY Routine 01/23/2022 2:40 PM Res ults for this REPORT EDT procedure are i n the results section. COLONOSCOPY, 01/23/2022 2:27 PM Colon Screening DIAGNOSTIC EDT COLONOSCOPY Routine 01/23/2022 2:25 PM Results f or this EDT procedure are i n the results section. documented in this encounter Results Specimen to Pathology (01/23/2022 3:09 PM EDT) Specimen Anatomical Collection Method Collection Time Receive d Time (Source) Location / / Volume Laterality AP Specimen 01/23/2022 3:09 PM 2 3:09 EDT PM EDT Narrative [facility] - 01/23/2022 3:09 PM EDT Specimen requisition ordered. ??Separate Pathology report to follow Anamaria Valverde MD PATHOLOGY/CYTOLOGY ORDERABLE S Performing Organization Address City/[facility]/[place]IP [place] [address] Specimen to Pathology (01/23/2022 3:09 PM EDT) Specimen Anatomical Collection Method Collection Time Receive d Time (Source) Location / / Volume Laterality AP Specimen 01/23/2022 3:09 PM 2 3:09 EDT PM EDT Narrative [facility] - 01/23/2022 3:09 PM EDT Specimen requisition ordered. ??Separate Pathology report to follow Anamaria Valverde MD PATHOLOGY/CYTOLOGY ORDERABLE S Performing Organization Address City/[facility] [place] [address] Surgical Pathology Report (01/23/2022 2:40 PM EDT) Component Value Ref Test Analysis Performed At [facility] Range Method Time Signature Surgical [id number] ? Location: 4T; EA10; A ANAMARIA Pathology MAYER Report The signing pathologist has (i) examined the relevant preparation(s) for the [facility] specimen(s) and (ii) rendered or confirmed the diagnosis(es) . HOSPITAL LABORATORY . ?Surgic al Pathology DIAGNOSIS A - Transverse colon polyp 5mm, excision (Multiple): - ??Tubular adenoma. B - Ascending colon polyp 4mm, excision (Multiple): - Colonic mucosa with polypoid hyperplastic changes. - ??Multiple levels examined. Electronically signed by: ?Mike SALAZAR PhD, Alison Verified: ??01/27/2022 15:49 ??Pathologist Performed at: ??-[facility] Dept. of Pathology, [place], [place] SPECIMEN(S) SUBMITTED A - Transverse colon polyp 5mm, excision (Multiple) B - Ascending colon polyp 4mm, excision (Multiple) CLINICAL INFORMATION 51-year-old w/ avg risk screening SPECIMEN PROCESSING A - Labeled/Fixative: Transverse colon polyp 5 mm, formalin. Quantity/Size: Single, 1.0 cm. Tissue Description: Soft, rubbery putnam sessile polyp. Sections/Processing: Inked, quadrisected and entirely submitted in 1 cassette lab eled A1. B - Labeled/Fixative: Ascending colon polyp 4 mm, formalin. Quantity/Size: Single, 1.2 cm. Tissue Description: Soft, putnam-pink polypoid tissue. Sections/Processing: Inked, quadrisected and entirely submitted in 1 cassette lab eled B1. ??mnd Specimen (Source) Anatomical Collection Method Collection Time Re ceived Time Location / / Volume Laterality 01/23/2022 2:40 PM EDT Nataliya Gusman MD PATHOLOGY/CYTOLOGY ORDERABLE S Performing Organization Address City/State/[place] [address] COLONOSCOPY (01/23/2022 2:25 PM EDT) Component Value Ref Test Analysis Performed At [facility] gist Range Method Time Signature COLONOSCOPY [facility] Endoscopy Procedure Date: 01/23/2022 2:25 PM ? Patient Name: Isiah Stone ? Date of : 1970 ? Age: 51 ? Order #: [id number] ? Instrument Name: [id number] ? Procedure: ? Colonoscopy Indications: ? Screening for colorectal maligna nt ? neoplasm Providers: ? NeeHank Caldwell, Raya Quiros, ? Sarika Rendon Referring MD: ?Shekhar Daigle Requesting Provider: ?? Shekhar Daigle Medicines: ? Monitored Anesthesia Care Complications: ? No immediate complications. ? Estimated blood loss: Mini mal. Procedure: ? Pre-Anesthesia Assessment: ? - Prior to the procedure, a History ? and Physical was performed , and ? patient medications, aller gies and ? sensitivities were reviewe d. The ? patient's tolerance of pre vious ? anesthesia was reviewed. ? - The risks and benefits o f the ? procedure and the sedation options ? and risks were discussed w ith the ? patient. All questions wer e ? answered and informed cons ent was ? obtained. ? - ASA Grade Assessment: II I - A ? patient with severe system ic ? disease. ? - Monitored anesthesia car e under ? the supervision of an ? anesthesiologist was deter mined to ? be medically necessary for this ? procedure based on severe ? comorbidity (greater than ASA Grade ? II) and prolonged procedur e ? requiring deep sedation. ? The procedure, indications , ? benefits, risks and altern atives ? were explained to the doron ent. ? Specifically discussed wer e ? potential complications in cluding, ? but not limited to, checoperlajohn palma, ? perforation, infection, mi ssing a ? cancer, and adverse medica tion ? reactions. The patient was placed ? in the left lateral decubi tus ? position, and a digital re ctal exam ? was performed. The Colonos cope was ? inserted in the anus and u nder ? direct visualization, adva nced to ? the terminal ileum, with ? identification of the appe ndiceal ? orifice and IC valve. Care ful ? inspection was made as the ? colonoscope was withdrawn. The ? colonoscopy was performed with ? ease. The patient tolerate d the ? procedure well. The qualit y of the ? bowel preparation was eval uated ? using the BBPS ([place] el ? Preparation Scale) with sc ores of: ? Right Colon = 3, Transvers e Colon = ? 3 and Left Colon = 3 (enti re mucosa ? seen well with no residual ? staining, small fragments of stool ? or opaque liquid). The tot al BBPS ? score equals 9. The qualit y of the ? bowel preparation was exce llent. ? The terminal ileum, ileoce homero ? valve, appendiceal orifice , and ? rectum were photographed. ? Findings: ? The perianal and digital rectal examinations were ? normal. ? The transverse colon and ascending colon revealed ? moderately excessive looping. Advancing the scope ? required applying abdominal pressure. ? A 5 mm polyp was found in the transverse colon. The ? polyp was sessile. The polyp was removed with a cold ? snare. Resection and retrieval were complete. ? Verification of patient identification for the ? specimen was done by the physician and nurse using ? the patient's name and date. Estimated blood ? loss was minimal. ? A 4 mm polyp was found in the ascending colon. The ? polyp was sessile. The polyp was removed with a cold ? snare. Resection and retrieval were complete. ? Estimated blood loss was minimal. ? The appendix appeared inverted with a normal ? appearing mucosa/pit pattern at the site of the ? appendiceal orifice. If future clinical concern, can ? consider one time CT abd/pelvis with contrast to rule ? out an appendiceal neoplasm. ? The exam was otherwise normal throughout the examined ? colon. ? The terminal ileum appeared normal. ? Non-bleeding external and internal hemorrhoids were ? found during retroflexion. The hemorrhoids were ? medium-sized. ? Moderate Sedation: ? Not applicable - See Anesthesia documentation Impression: ?- There was significant looping of ? the colon. ? - One 5 mm polyp in the tr ansverse ? colon, removed with a cold snare. ? Resected and retrieved. ? - One 4 mm polyp in the as cending ? colon, removed with a cold snare. ? Resected and retrieved. ? - The appendix appeared in verted ? with a normal appearing mu cosa/pit ? pattern and mild bulging a ppearance ? at the site of the appendi ceal ? orifice. Consider one time CT ? abd/pelvis with contrast t o rule ? out an appendiceal neoplas m. ? - The examined portion of the ileum ? was normal. ? - Non-bleeding external an d ? internal hemorrhoids. Recommendation: ?- Patient has a contact number ? available for emergencies. The ? signs and symptoms of pote ntial ? delayed complications were ? discussed with the patient . Return ? to normal activities tomor emanuel. ? Written discharge instruct ions were ? provided to the patient. ? - Discharge patient to [facility] ? (ambulatory). ? - Await pathology results. ? - Repeat colonoscopy in kiara last 7 ? years for surveillance of polyp, ? pending pathology results. ? - Return to referring phys ician. ? Consider one time CT abd/p aster ? with contrast to rule out an ? appendiceal neoplasm given ? inverted/bulging appearanc e of ? appendix at appendiceal or ifice. ? Procedure Code(s): ? --- Professional --- ? 35589, Colonoscopy, flexib le; with ? removal of tumor(s), polyp (s), or ? other lesion(s) by snare t raul CPT copyright 2020 [employer]. All rights reserved. The codes documented in this report are preliminary and upon solid tire finisher review may be revised to meet current compliance requirements. Attending Participation: ? I personally performed the entire procedure. ? Nataliya Gusman, 01/23/2022 3:19:36 PM Number of Addenda: 0 Note Initiated On: 01/23/2022 2:25 PM Specimen (Source) Anatomical Collection Method Collection Time Re ceived Time Location / / Volume Laterality 01/23/2022 2:25 PM EDT Shekhar Daigle MD GENERAL SURGICAL ORDERABLES Performing Organization Address City/State/ZIP Code Phon e Number [facility] documented in this encounter Visit Diagnoses Not on filedocumented in this encounter Administered Medications Inactive Administered Medications - up to 3 most recent administrations Medication Order MAR Action Action Date Dose Rate Site lactated ringers infusion Restarted 01/23/2022 2:24 PM EDT 100 mL/hr, Intravenous, CONTINUOUS, Starting on Sun01/23/22 at 1400, Until Sun01/23/22 at 1553, Endoscopy (Day of Procedure) New Bag 01/23/2022 1:38 PM EDT 100 mL/hr 100 mL/hr documented in this encounter Active and Recently Administered Medications Times are shown in EDT. Continuous Medication Order 01/21/2022 01/22/2022 01/23/2022 lactated ringers infusion (CANCELED) 1338 (New Bag - Provider: Corry Camacho RN)1423 (Paused - Provider: Stephani Lares CRNA - Comment: Switch to gravity)1424 (Restarted - Provider: Stephani Lares CRNA) 100 mL/hr, Intravenous, CONTINUOUS, Star ting on Sun01/23/22 at 1400, Until Sun01/23/22 at 1553, Endoscopy (Day of Procedure) 1427 (Canceled Entry - Provider: Stephani Lares CRNA - Comment: Switch to gravity)1428 (Canceled Entry - Provider: Stephani Lares CRNA)1511 (Stopped - Provider: Stephani Lares CRNA) documented in this encounter Care Teams Inspector Watch Train Relationship Specialty Start Date End Date Shekhar Daigle MD PCP - General Family Medicine 09/30/21 [address] [place] [address] documented as of this encounter
--- OUTSIDE RECORDS SUMMARY | 2022-02-22 17:26 | XMS_ITS | Clinical Summary ---
:1970 Author Organization [facility] [place] [address] Care Team Providers Name Role Phone Shekhar Daigle MD Primary Care Provider Allergies Active Allergy Reactions Severity Noted Date Comments Oxycodone-Acetaminophen Itching Medium 01/23/2022 Medications Medication Sig Dispensed Refills Start Date End Date Status ARIPiprazole 0 12/12/2021 Active (Abilify) 2 mg Tablet cetirizine (ZyrTEC) TAKE ONE TABLET BY 0 01/04/2022 Active 10 mg Tablet MOUTH EVERY DAY FOR ALLERGY dextroamphetamine-amp 0 01/20/2022 Active hetamine (Adderall) 10 mg Tablet dextroamphetamine-amp 0 01/20/2022 Active hetamine (Adderall) 5 mg Tablet Latuda 40 mg Tablet 0 01/11/2022 Active PARoxetine (Paxil) 40 TAKE ONE TABLET BY 0 2 Active mg Tablet MOUTH EVERY DAY - SCHEDULE APPOINTMENT FOR REFILLS Active Problems Problem Noted Date Nevus 11/28/2011 Encounters Date Type Specialty Care Team Description 01/23/2022 Anesthesia Event Gastroenterology Miryam Blackburn MD Heckman, Elizabeth S, CRNA 01/23/2022 Surgery Gastroenterology Nataliya Gusman MD COLONO SCOPY, NAOMI 01/23/2022 Hospital Encounter Gastroenterology Nataliya Gusman MD from Last 3 Months Social History Tobacco Use Types Packs/Day Years Used Date Former Smoker Smokeless Tobacco: Never Used Alcohol Use Standard Drinks/Week Comments Yes 12 (1 standard drink = 0.6 oz pure alcoh ol) Sex Assigned at Date Recorded Not on file Last Filed Vital Signs Vital Sign Reading [...] Mass Index 42.57 01/23/2022 1:30 PM EDT Plan of Treatment Health Maintenance Due Date Last Done Comments Covid-19 Vaccine (#1) 10/12/1975 HIV screen 1988 Hepatitis C Screening 1988 Lipid Screening 1988 Tdap adult 1989 Tetanus vaccine 1989 Diabetes Screening (HgbA1C or Glucose) 2010 Zoster vaccine (1 of 2) 2020 Influenza (Flu) vaccine (1 of 1 - 04/13/2022 Influenza standard series) Colonoscopy 01/24/2032 01/23/2022, 01/23/2022 Procedures Procedure Name Priority Date/Time Associated Comments [...] procedure are i n the results section. from Last 3 Months Results Specimen to Pathology (01/23/2022 3:09 PM EDT)Only the most recent of2 results within the time period is included. Specimen Anatomical Collection Method Collection Time Receive d Time (Source) Location / / Volume Laterality AP Specimen 01/23/2022 3:09 PM 06/13/202 2 3:09 EDT PM EDT Narrative [facility] - 01/23/2022 3:09 PM EDT Specimen requisition ordered. ??Separate Pathology report to follow Anamaria Valverde MD PATHOLOGY/CYTOLOGY ORDERABLE S Performing Organization Address City/State/[place] [address] Surgical Pathology Report (01/23/2022 2:40 PM EDT) Component Value Ref Test Analysis Performed At [facility] Range Method Time Signature Surgical [id number] ? Location: 4T; EA10; A [facility] Report The signing pathologist has (i) examined the relevant preparation(s) for the [facility] specimen(s) and (ii) rendered or confirmed the diagnosis(es) . HOSPITAL LABORATORY . ?Surgic al Pathology DIAGNOSIS A - Transverse colon polyp 5mm, excision (Multiple): - ??Tubular adenoma. B - Ascending colon polyp 4mm, excision (Multiple): - Colonic mucosa with polypoid hyperplastic changes. - ??Multiple levels examined. Electronically signed by: ?Mike SALAZAR PhD, Alison Verified: ??01/27/2022 15:49 ??Pathologist Performed at: ??-[facility] Dept. of Pathology, [place], [place] SPECIMEN(S) SUBMITTED A - Transverse colon [...] Organization Address City/State/[place] [address] COLONOSCOPY (01/23/2022 2:25 PM EDT) Component Value Ref Test Analysis Performed At [facility] Range Method Time Signature COLONOSCOPY [facility] Endoscopy Procedure Date: 01/23/2022 2:25 PM ? Patient Name: Isiah Stone ? Date of : 1970 ? Age: 51 ? Order #: [id number] ? Instrument Name: [id number] ? Procedure: ? Colonoscopy Indications: ? Screening for colorectal maligna nt ? neoplasm Providers: ? Nataliya Gusman, Hank Marshall, R N, ? Belkys Castillo, Sarika norman Referring MD: ?Shekhar Daigle Requesting Provider: ?? [...] in cluding, ? but not limited to, keily palma, ? perforation, infection, mi ssing a [...] was eval uated ? using the BBPS (Ishaan pizarro ? Preparation Scale) with sc ores of: [...] patient . Return ? to normal activities isreal castellanos. ? Written discharge instruct ions were ? [...] Procedure Code(s): ? --- Professional --- ? 10199, Colonoscopy, flexib le; with ? removal of tumor(s), polyp (s), or ? other lesion(s) by naren carter CPT copyright 2020 [employer]. All rights reserved. The codes documented in this report are preliminary and upon diesel engine fitter review may be revised to meet current compliance requirements. Attending Participation: ? I personally performed the entire procedure. ? Neej Fadumo Gusman, 01/23/2022 3:19:36 PM Number of Addenda: 0 Note Initiated On: 01/23/2022 2:25 PM Specimen (Source) Anatomical Collection Method Collection Time Re ceived Time Location / / Volume Laterality 01/23/2022 2:25 PM EDT Shekhar Daigle MD GENERAL SURGICAL ORDERABLES Performing Organization Address City/State/ZIP Code Phon e Number [place]OV[place] from Last 3 Months Insurance Payer Benefit Plan / Subscriber ID Effective Dates Phone Addre ss Type Group [place] [id number] 2022-Alicia [phone] [address] [facility] t [address] [place] [address] Care Teams Direct Support Professional Caregiver Relationship Specialty Start Date End Date Shekhar Daigle MD PCP - General Family Medicine 09/30/21 [address] [place] [address]
--- OUTSIDE RECORDS SUMMARY | 2022-02-22 17:26 | XMS_ITS | Encounter Summary ---
:1970 Author Organization [facility] [place] [address] Care Team Providers Name Role Phone Shekhar Daigle MD Primary Care Provider Encounter Details Date Type Department Care Team Description 01/23/2022 Surgery Gastroenterology at [facility] Nataliya Gusman MD [facility]OS[facility], [facility] [place] [address] GASTROENEROLOGY [place] [id number] Social History Tobacco Use Types Packs/Day Years Used Date Former Smoker Smokeless Tobacco: Never Used Alcohol Use Standard Drinks/Week Comments Yes 12 (1 standard drink = 0.6 oz pure alcoh ol) Sex Assigned at Date Recorded Not on file documented as of this encounter Last Filed Vital Signs Vital Sign Reading Time Taken Comments Blood Pressure 125/83 01/23/2022 1:30 PM EDT Pulse 60 01/23/2022 1:30 PM EDT Temperature 35.8 ??C (96.4 ??F) 01/23/2022 1:30 PM EDT Respiratory Rate - - Oxygen Saturation 97% 01/23/2022 1:30 PM EDT Inhaled Oxygen Concentration - - [...] occurs, please contact your Doctor. Please call [phone] before 8pm Mon-Fri with problems, questions or concerns. If you call after 8pm or on weekends, call the Hospital at [phone] and ask to speak to the Box Strapper concrete wall grinder operator and the reverse unit operator will contact that person for you. When should you call for help? Call 911 anytime you think you may need emergency [...] any problems. Where can you learn more? [facility] View your After Visit Summary and more online at [email or web address] If you would like to provide feedback about your hospital experience, please call the Office of Patient and Family Relations at . If you have received this After Visit Summary in error, please immediately return it in person to the department, or notify the [facility] Privacy Office by calling toll free at between the hours of 8AM and 5PM to arrange for our retrieval of the documents at no cost to you. Content Version: 12.2 ?? [id number] [employer]. Care instructions adapted under license by [facility]. If you have questions about a medical condition or this instruction, always ask your healthcare professional. [employer], [facility] disclaims any warranty or liability for your [...] occurs, please contact your Doctor. Please call [phone] before 8pm Mon-Fri with problems, questions or concerns. If you call after 8pm or on weekends, call the Hospital at [phone] and ask to speak to the Box Strapper concrete wall grinder operator and the reverse unit operator will contact that person for you. When should you call for help? Call [phone] anytime you think you may need emergency [...] any problems. Where can you learn more? [facility] View your After Visit Summary and more online at [email or web address] If you would like to provide feedback about your hospital experience, please call the Office of Patient and Family Relations at . If you have received this After Visit Summary in error, please immediately return it in person to the department, or notify the [facility] Privacy Office by calling toll free at between the hours of 8AM and 5PM to arrange for our retrieval of the documents at no cost to you. Content Version: 12.2 ?? [id number] [employer]. Care instructions adapted under license by [facility]. If you have questions about a medical condition or this instruction, always ask your healthcare professional. [employer] disclaims any warranty or liability for your [...] PM 2 3:09 EDT PM EDT Narrative [facility] - 01/23/2022 3:09 PM EDT Specimen requisition ordered. ??Separate Pathology report to follow Anamaria Valverde MD PATHOLOGY/CYTOLOGY ORDERABLE S Performing Organization Address City/[facility] [address]/[place] [address] Specimen to Pathology (01/23/2022 3:09 PM EDT) Specimen Anatomical Collection Method Collection Time Receive d Time (Source) Location / / Volume Laterality AP Specimen 01/23/2022 3:09 PM 2 3:09 EDT PM EDT Narrative [facility] - 01/23/2022 3:09 PM EDT Specimen requisition ordered. ??Separate Pathology report to follow Anamaria Valverde MD PATHOLOGY/CYTOLOGY ORDERABLE S Performing Organization Address City/[facility] [address]/[facility] [place] [address] Surgical Pathology Report (01/23/2022 2:40 PM EDT) Component Value Ref Test Analysis Performed At [facility] gist Range Method Time Signature Surgical [id number] ? Location: 4T; EA10; [facility] The signing pathologist has (i) examined [...] Alison Verified: ??01/27/2022 15:49 ??Pathologist Performed at: ??-[facility] Dept. of Pathology, [place], [place] SPECIMEN(S) SUBMITTED A - Transverse colon [...] Organization Address City/State/[place] [address] [facility] [address] COLONOSCOPY (01/23/2022 2:25 PM EDT) Component Value Ref Test Analysis Performed At [facility] Range Method Time Signature COLONOSCOPY [facility] Endoscopy Procedure Date: 01/23/2022 2:25 PM ? Patient Name: Isiah Stone ? Date of : 1970 ? Age: 51 ? Order #: [id number] ? Instrument Name: [id number] ? Procedure: ? Colonoscopy Indications: ? Screening for colorectal maligna nt ? neoplasm Providers: ? Hank Nieves, R N, ? Sarika Rendon Referring MD: ?Shekhar Daigle [...] in cluding, ? but not limited to, bleedi ng, ? perforation, infection, mi ssing a ? [...] was eval uated ? using the BBPS ([place] ? Preparation Scale) with sc ores [...] Procedure Code(s): ? --- Professional --- ? 53588, Colonoscopy, flexib le; with ? removal of tumor(s), polyp (s), or ? other lesion(s) by snare t raul CPT copyright 2020 [employer]. All rights reserved. The codes documented in this report are preliminary and upon reverse unit operator review may be revised to meet current [...] CRNA) documented in this encounter Care Teams Maintenance Equipment Operator Relationship Specialty Start Date End Date Shekhar Daigle MD PCP - General Family Medicine 09/30/21 [address] [place] [address] documented as of this encounter
--- OUTSIDE RECORDS SUMMARY | 2022-02-22 17:26 | XMS_ITS | Encounter Summary ---
:1970 Author Organization [facility] [place] [address] Care Team Providers Name Role Phone Shekhar Daigle MD Primary Care Provider Encounter Details Date Type Department Care Team Description 10/17/2021 Telephone Gastroenterology at [facility] [address] Social History Tobacco Use Types Packs/Day Years Used Date Former Smoker Sex Assigned at Date Recorded Not on file documented as of this encounter Miscellaneous Notes Telephone Encounter - Henrietta Arthur - 10/17/2021 4:26 PM EST Called number back from [employer] callback. No answer. Left VM documented in this encounter Plan of Treatment Not on filedocumented as of this encounter Visit Diagnoses Not on filedocumented in this encounter Care Teams Band Head Saw Operator Relationship Specialty Start Date End Date Shekhar Daigle MD PCP - General Family Medicine 09/30/[address] [place] [phone] documented as of this encounter
--- OUTSIDE RECORDS SUMMARY | 2022-02-22 17:26 | XMS_ITS | Encounter Summary ---
:1970 Author Organization [facility] [place] [address] Care Team Providers Name Role Phone Shekhar Daigle MD Primary Care Provider Encounter Details Date Type Department Care Team Description 01/23/2022 Anesthesia Event Gastroenterology at [facility] Miryam Blackburn MD [facility] [place] [address] [facility] Stephani Fung CRNA [facility] [place] [address] [place] [address] Anesthesia Record Procedure Summary Procedure Name Responsible Anesthesia Start Anesthesia Stop Anesthesiologist Time Time COLONOSCOPY, Miryam Blackburn MD 01/23/22 1424 01/23/22 15 19 DIAGNOSTIC (N/A Trunk) Events Date Time Event Comment 01/23/2022 1348 1424 AN Verify 1424 Start 1424 An Start Data 1428 An Induction 1430 Anesthesia Ready 1515 an stop data 1519 Recovery or ICU Handoff Patient care was transferred to the destination unit staff after review of the patient's medica l history, current anesthetic/surgi homero status and plan, according to the Provider Handoff Checklist. 1519 Stop Name Total IV Lidocaine 50 mg Propofol 100 mg Propofol INF 595.63 mg Dexmedetomidine 20 mcg lactated ringers infusion 800 mL Agents Name O2 Air N2O O2 Auxiliary Flowmeter 1 Blood No blood administrations on file. Lines, Drains, and Airways Type Details Placement Removal PIV 01/23/22; 1337; metacarpal 01/23/22 1337 by Stephen singh, 01/23/22 1553 by fan Williamson (top of hand), right; GLORIA Lo RN atvr-nyd-tecyyk catheter system; US Not Used; 22 gauge; Pati Enamorado RN; distraction; 0; 01/23/22; 1553 documented in this encounter Social History Tobacco Use Types Packs/Day Years Used Date Former Smoker Smokeless Tobacco: Never Used Alcohol Use Standard Drinks/Week Comments Yes 12 (1 standard drink = 0.6 oz pure alcoh ol) Sex Assigned at Date Recorded Not on file documented as of this encounter OR Notes Anesthesia Postprocedure Evaluation - Miryam Blackburn MD - 01/23/2022 4:25 PM EDT Department of Anesthesiology Post-procedure Note Patient: Isiah Magaña Jr. Procedure Summary Date: 01/23/22 Room / Location: [facility] ENDO 2 / [facility] ENDOSCOPY Anesthesia Start: 4 Anesthesia Stop: 151 Procedure: COLONOSCOPY, DIAGNOSTIC (N/A Trunk) Diagnosis: (Colon Screening) Surgeons: Nataliya Gusman MD Responsible Provider: Miryam Blackburn MD Anesthesia Type: MAC ASA Status: 3 All Anesthesia Providers: Anesthesiologist: Miryam Blackburn MD COP: Stephani Lares CRNA Vitals Value Taken Time BP 118/60 01/23/22 1540 Temp Pulse Resp 16 01/23/22 1540 SpO2 95 % 01/23/22 1550 Pain Level 0 01/23/22 1540 Patient Location: PACU/[facility] Level of Consciousness: Awake and Alert Pain Management: Satisfactory Analgesia PONV: None Cardiovascular Status: At Baseline Respiratory Status: At Baseline Postoperative Fluid Status: Intravascular EUvolemia Possible Anesthetic Complications: NONE apparent at time of evaluation Final Primary Anesthesia Type: MAC (The anesthetic type performed was the same as planned.) Comments: Anesthesia Preprocedure Evaluation - Miryam Blackburn MD - 01/23/2022 1:46 PM EDT Pre-Anesthesia Evaluation for: Isiah Magaña . a 51 y.o. male. Procedure(s): COLONOSCOPY, DIAGNOSTIC Patient Active Problem List Diagnosis Date Noted ??? Nevus 11/28/2011 No past medical history on file. No past surgical history on file. Social History Tobacco Use ??? Smoking status: Former Smoker ??? Smokeless tobacco: Never Used Substance Use Topics ??? Alcohol use: Yes Alcohol/week: 12.0 standard drinks Types: 12 Cans of beer per week Social History Substance and Sexual Activity Drug Use Yes ??? Types: Marijuana Comment: 2x per day Allergies Allergen Reactions ??? Percocet [Oxycodone-Acetaminophen] Itching Medications: MAR and/or home medications have been reviewed. Physical Exam: Preprocedure Vitals Current as of 01/23/22 1346 BP: 125/83 Pulse: 60 Resp: SpO2: 97 Temp: 35.8 ??C (96.4 ??F) Height: 172.7 cm (5' 8) (01/23/22) Weight: 127 kg (280 lb) (01/23/22) BMI: 42.57 IBW: 68.4 kg (150 lb 12.1 oz) Last edited 01/23/22 1330 by AA Airway Assessment: Mallampati: III TM distance: >3 FB Neck ROM: full Cardiovascular Assessment: system normal Pulmonary Assessment: unlabored breathing pulmonary exam normal Dental Assessment: Misc Assessment: IV access: Peripheral line Last Filed Perioperative Cognitive Screening None Anesthesia Plan: ASA 3 MAC, with a(n) intravenous induction 51 yo male for screening Colonoscopy. NPO>8h , did take am meds . Hx anxiety, depression, NIKKI (uses BiPap). No complications with anesthesia previously. Plan MAC, postop Bipap use reinforced. Region - Other Informed Consent: Anesthetic plan and risks discussed with patient. Plan discussed with COP. Anesthesia Screening documented in this encounter Plan of Treatment Not on filedocumented as of this encounter Visit Diagnoses Not on filedocumented in this encounter Administered Medications Inactive Administered Medications - up to 3 most recent administrations Medication Order MAR Action Action Date Dose Rate Site dexmedeTOMIDine (Precedex) (4 Given 01/23/2022 2:34 PM EDT 8 mcg mcg/mL) bolus injection (Anesthsia) Intravenous, PRN, Starting on Sun01/23/22 at 1428, Until Sun01/23/22 at 1519, Anesthesia Intra-op, Routine Given 01/23/2022 2:28 PM EDT 12 mcg lactated ringers infusion Restarted 01/23/2022 2:24 PM EDT 100 mL/hr, Intravenous, CONTINUOUS, Starting on Sun01/23/22 at 1400, Until Sun01/23/22 at 1553, Endoscopy (Day of Procedure) New Bag 01/23/2022 1:38 PM EDT 100 mL/hr 100 mL/hr lidocaine (pf) (Xylocaine) (20 mg/mL) 2% Given 01/23/2022 2:28 P M EDT 50 mg injection syringe Intravenous, PRN, Starting on Sun01/23/22 at 1428, Until Sun01/23/22 at 1519, Anesthesia Intra-op, Routine propofoL (Diprivan) (10 Rate/Dose 01/23/2022 2:54 100 mcg/kg/min 76. 2 mL/hr mg/mL) infusion Change PM EDT Intravenous, CONTINUOUS PRN, Starting on Sun01/23/22 at 1431, Until Sun01/23/22 at 1519, Anesthesia Intra-op, Routine Rate/Dose Change 01/23/2022 2:41 PM EDT 130 mcg/kg/min 99.06 mL/hr New Bag 01/23/2022 2:31 PM EDT 150 mcg/kg/min 114.3 mL/hr propofoL (Diprivan) 10 mg/mL bolus injection Given 2:34 PM EDT 20 mg (Anesthesia) Intravenous, PRN, Starting on Sun01/23/22 at 1428, Until Sun01/23/22 at 1519, Anesthesia Intra-op Given 01/23/2022 2:32 PM EDT 30 mg Given 01/23/2022 2:28 PM EDT 50 mg documented in this encounter Care Teams Art Studio Teacher Relationship Specialty Start Date End Date Shekhar Daigle MD PCP - General Family Medicine 09/30/21 [address] [place] [address] documented as of this encounter
--- OUTSIDE RECORDS SUMMARY | 2022-02-22 17:26 | XMS_ITS | Encounter Summary ---
:1970 Author Organization [facility] Address [address] [place] [address] Care Team Providers Name Role Phone Unavailable Primary Care Provider Unavailable Encounter Details Date Type Department Care Team Description 12/17/2019 Lab Requisition [facility] Outr Resulting Lab, Pathology & Laboratory Provider [facility] [address] [place] [address] Social History Tobacco Use Types Packs/Day Years Used Date Never Assessed Sex Assigned at Date Recorded Not on file documented as of this encounter Plan of Treatment Not on filedocumented as of this encounter Procedures Procedure Name Priority Date/Time Associated Diagnosis Comme nts HEPATITIS C AB W Routine 12/17/2019 10:45 Results for this REFLEX TO HCV RNA EDT procedure are in BY PCR the results section. HEPATITIS B SURFACE Routine 12/17/2019 10:45 Resu lts for this ANTIGEN EDT procedure are i n the results section. documented in this encounter Results HEPATITIS B SURFACE ANTIGEN (12/17/2019 10:45 EDT) Pathologist Sig nature Hep B Surface Ag Negative Negative [facility] SERVICES Specimen Blood - Venous blood (substance) Performing Organization Address City/[facility]/ZIP Code Phon e Number [facility] [address] [place] [address] SERVICES HEPATITIS C AB W REFLEX TO HCV RNA BY PCR (12/17/2019 10:45 EDT) Pathologist Sig nature Hep C Antibody Negative Negative [facility] ORY SERVICES Specimen Blood - Venous blood (substance) Performing Organization Address City/[facility]/ZIP Code Phon e Number [facility] [address] [place] [address] SERVICES documented in this encounter Visit Diagnoses Not on filedocumented in this encounter
== END 2022-02-22 17:24 | disposition home or self-care (01) ==
LOC: NCHCN 17:23
PROVIDERS: PCP Family Medicine; Visit Provider Family Medicine
DX: K76.0 Fatty (change of) liver, not elsewhere classified (principal); Z13.1 Encounter for screening for diabetes mellitus; Z13.220 Encounter for screening for lipoid disorders; Z00.00 Encounter for general adult medical examination without abnormal findings
CPT/HCPCS: 80053; 80061; 85027; 83036

== ENCOUNTER 2022-08-16 17:31 | Outpatient (REF) | payer MEDICAID, SELFPAY ==
[2022-08-18 11:57] LABS: COVID-19 RT-PCR UVMMC Result Negative (Negative)
== END 2022-08-16 17:32 | disposition home or self-care (01) ==
LOC: LBN 17:31
PROVIDERS: PCP Family Medicine; Visit Provider Physician Assistant Medical
DX: Z20.822 Contact with and (suspected) exposure to COVID-19 (principal); R05.8 Other specified cough
CPT/HCPCS: U0003

== ENCOUNTER 2024-10-07 15:15 | Outpatient (REF) | payer MEDICAID, SELFPAY ==
[2024-10-07 15:38] LABS: HCT 49.1 % (40.0-50.0); HGB 16.4 g/dL (13.5-17.5); MCH 29.4 pg (27.0-33.0); MCHC 33.4 % (32.0-36.0); MCV 88 fL (80-95); Platelet Count 229 10^3/uL (130-400); RBC 5.58 10^6/uL (4.36-5.78); RDW 13.5 % (11.8-14.1); RDW-SD 43.3 fL; WBC 6.83 10^3/uL (4.4-10.8)
[2024-10-07 17:34] LABS: ALT 29 U/L (16-63); AST 19 U/L (15-37); Albumin 4.1 g/dL (3.4-5.0); Alkaline Phosphatase 80 U/L (46-116); BUN 14 mg/dL (7-18); Bilirubin, Total 0.79 mg/dL (0.2-1.0); CREATININE 0.9 mg/dL (0.70-1.30); Calcium 9.2 mg/dL (8.5-10.1); Calculated LDL 197 mg/dL (<100); Chloride 105 mmol/L (98-107); Cholesterol 276 mg/dL (<200); Estimated GFR 102.12 (mL/min/1.73m2); Glucose 93 mg/dL (74-106); HDL Cholesterol 44 mg/dL (40-60); Potassium 4.7 mmol/L (3.5-5.1); Sodium 141 mmol/L (136-145); Total Protein 7.4 g/dL (6.4-8.2); Triglyceride 178 mg/dL (<150)
[2024-10-07 18:04] LABS: Hemoglobin A1C 5.6 % (<5.7)
== END 2024-10-07 15:16 | disposition home or self-care (01) ==
LOC: NCHCN 15:15
PROVIDERS: PCP Family Medicine; Visit Provider Nurse Practitioner Family
DX: Z00.00 Encounter for general adult medical examination without abnormal findings (principal)
CPT/HCPCS: 80053; 80061; 85027; 83036